=== PATIENT | female | born 1970 | race American Indian/Alaskan Native ===

== ENCOUNTER 2016-08-26 18:27 | Emergency (ER) | payer MEDICAID ==
[2016-08-26] MEDS ORDERED: Acetaminophen 650mg/20.3ml solution UD ONE (21:18)
[2016-08-26] MEDS ORDERED: Acetaminophen 650mg/20.3ml solution UD PO STA (21:24)
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
[2016-08-26 23:44] VITALS: BP 114/76; PULSE 61; RESP 16; TEMP 97.8; O2SAT 99
== END 2016-08-27 00:04 | disposition home or self-care (01) ==
LOC: C.ER 18:27
DX: S16.1XXA Strain of muscle, fascia and tendon at neck level, initial encounter (principal); S09.90XA Unspecified injury of head, initial encounter; Y04.0XXA Assault by unarmed brawl or fight, initial encounter

== ENCOUNTER 2016-12-10 21:42 | Emergency (ER) | payer MEDICAID ==
[2016-12-10 21:55] VITALS: RESP 16
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
[2016-12-11 01:58] LABS: BASO # 0.1 K/uL (0.0-0.2); BASO % 0.7 % (0.0-2.0); EOS # 0.1 K/uL (0.0-0.7); EOS % 1.5 % (0.0-4.0); HEMATOCRIT 39.6 % (34.0-47.0); LYMPH # 1.9 K/uL (1.0-4.3); LYMPH % 19.5 % (20.0-40.0); MEAN CELL VOLUME 91.4 fL (81.0-99.0); MEAN CORPUSCULAR HEMOGLOBIN 28.8 pg (27.0-31.0); MEAN CORPUSCULAR HGB CONC 31.4 g/dL (33.0-37.0); MEAN PLATELET VOLUME 8.5 fL (7.2-11.7); MONO # 1.1 K/uL (0.0-0.8); MONO % 11.8 % (0.0-10.0); RED CELL DISTRIBUTION WIDTH 15.5 % (11.5-14.5); WHITE BLOOD COUNT 9.7 K/uL (4.8-10.8)
[2016-12-11 02:05] LABS: CHLORIDE 101 mmol/L (98-107); POTASSIUM 4.2 mmol/L (3.6-5.2); SODIUM 139 mmol/L (132-148)
[2016-12-11 02:08] LABS: ALB/GLOB RATIO 1.1 (1.0-2.1); ALKALINE PHOSPHATASE 85 U/L (38-126); ALT/SGPT 45 U/L (9-52); AST/SGOT 36 U/L (14-36); BILIRUBIN,TOTAL 0.9 mg/dL (0.2-1.3); BLOOD UREA NITROGEN 13 mg/dL (7-17); CARBON DIOXIDE 27 mmol/L (22-30); GFR AFRICAN-AMERICAN > 60; GLUCOSE,RANDOM 88 mg/dL (65-105); TOTAL PROTEIN 7.5 g/dL (6.3-8.3)
[2016-12-11 02:09] LABS: CALCIUM 9.8 mg/dl (8.6-10.4)
[2016-12-11] MEDS ORDERED: Amoxicillin 250 mg/5 ml Susp (100 ml) ONE (02:11)
[2016-12-11] MEDS ORDERED: Sodium Chloride 0.9% 500 ML IV ONE (02:40)
[2016-12-11] MEDS ORDERED: Sodium Chloride 0.9% 1,000 ML IV ONE (02:41)
[2016-12-11 04:39] LABS: RBC URINE 58 /hpf (0-3); URINE BACTERIA RARE (<OCC); URINE BILIRUBIN NEGATIVE (NEGATIVE); URINE BLOOD 2+ (NEGATIVE); URINE COLOR Yellow (YELLOW); URINE GLUCOSE (UA) NORMAL (Normal); URINE KETONE NEGATIVE (NEGATIVE); URINE LEUKOCYTE ESTERASE 2+ Leu/uL (Negative); URINE PROTEIN 1+ mg/dL (NEGATIVE); URINE UROBILINOGEN NORMAL mg/dL (0.2-1.0); WBC URINE 69 /hpf (0-5)
--- NOTE | 2016-12-11 06:27 | US ---
EXAM: US Pelvis, Transvaginal EXAM DATE/TIME: 12/11/2016 1:29 AM CLINICAL HISTORY: 46 years old, female; Pain; Pelvic pain; Additional info: Lower abd tenderness/ pain TECHNIQUE: Real-time transvaginal pelvic ultrasound (complete) with image documentation. Transvaginal imaging was used for better evaluation of the endometrium and adnexa. COMPARISON: CT - ABD PELVIS IV CONTRAST ONLY 09/12/2015 10:57:37 AM FINDINGS: Uterus/cervix: Uterus measures 11.6 x 6.9 x 8.4 cm. Heterogeneous myometrium. Three calcified myomas: 3.5 x 3.4 x 3.6 cm, 3.6 3.2 x 3.1 cm, 3.8 x 3.5 x 3.4 cm. Additional non-calcified myomas in the posterior body measures 3.1 x 2.2 x 2.7 cm, in lower uterine segment measures 2.9 x 2.5 x 2.7 cm. Heterogeneous endometrium measures 1.7 cm. Right ovary: Not visualized. Left ovary: Not visualized. Free fluid: No free fluid. Bladder: Empty bladder which cannot be evaluated with this probe. IMPRESSION: 1. Enlarged and myomatous uterus. 2. Thickened and heterogeneous endometrium.
[2016-12-11 07:15] VITALS: BP 124/87; PULSE 65; TEMP 98.7; O2SAT 100
--- NOTE | 2016-12-11 11:51 | CARD ---
APPROVED REPORT EKG Measurement Heart [id number] <Conclusion> Normal sinus rhythm Normal ECG
== END 2016-12-11 07:23 | disposition home or self-care (01) ==
LOC: C.ER 21:42
DX: N73.9 Female pelvic inflammatory disease, unspecified (principal); N39.0 Urinary tract infection, site not specified; D25.9 Leiomyoma of uterus, unspecified; S60.372A Other superficial bite of left thumb, initial encounter; Y04.1XXA Assault by human bite, initial encounter; Y92.9 Unspecified place or not applicable
CPT/HCPCS: 76830; 80053; 81001; 84702; 84703; 85025; 87070; 87086; 87491; 87591; 90471; 90715; 93005; 96365; 99283; J0696; J7040

== ENCOUNTER 2017-04-13 16:37 | Emergency (ER) | payer SELFPAY ==
[2017-04-13 17:41] LABS: RBC URINE 1 /hpf (0-3); URINE BILIRUBIN NEGATIVE (NEGATIVE); URINE BLOOD NEGATIVE (NEGATIVE); URINE COLOR Yellow (YELLOW); URINE GLUCOSE (UA) NORMAL (Normal); URINE KETONE NEGATIVE (NEGATIVE); URINE LEUKOCYTE ESTERASE NEG Leu/uL (Negative); URINE PROTEIN 1+ mg/dL (NEGATIVE); URINE UROBILINOGEN NORMAL mg/dL (0.2-1.0); WBC URINE 1 /hpf (0-5)
[2017-04-13 18:06] LABS: BASO % 0.5 % (0.0-2.0); EOS # 0.2 K/uL (0.0-0.7); EOS % 3.4 % (0.0-4.0); HEMATOCRIT 42.6 % (34.0-47.0); MEAN CELL VOLUME 93.7 fL (81.0-99.0); MEAN CORPUSCULAR HGB CONC 34.1 g/dL (33.0-37.0); MEAN PLATELET VOLUME 8.3 fL (7.2-11.7); MONO # 0.6 K/uL (0.0-0.8); MONO % 10.4 % (0.0-10.0); NRBC % 0.1 % (0.0-2.0); RED CELL DISTRIBUTION WIDTH 13.7 % (11.5-14.5); WHITE BLOOD COUNT 5.3 K/uL (4.8-10.8)
[2017-04-13 18:14] LABS: BLOOD UREA NITROGEN 18 mg/dL (7-17); CALCIUM 9.6 mg/dl (8.6-10.4); CARBON DIOXIDE 30 mmol/L (22-30); CHLORIDE 98 mmol/L (98-107); GFR AFRICAN-AMERICAN > 60; GLUCOSE,RANDOM 84 mg/dL (65-105); POTASSIUM 4.7 mmol/L (3.6-5.2); SODIUM 133 mmol/L (132-148); TOTAL PROTEIN 7.8 g/dL (6.3-8.3)
[2017-04-13 18:15] LABS: ALB/GLOB RATIO 1.1 (1.0-2.1); ALKALINE PHOSPHATASE 71 U/L (38-126); ALT/SGPT 33 U/L (9-52); AST/SGOT 37 U/L (14-36); BILIRUBIN,TOTAL 0.9 mg/dL (0.2-1.3)
--- NOTE | 2017-04-13 20:53 | US ---
EXAM: US Pelvis, Transvaginal EXAM DATE/TIME: Exam ordered 04/13/2017 5:49 PM CLINICAL HISTORY: 46 years old, female; Signs and symptoms; Other: H/o fibroids; Additional info: Pelvic pain, h/o fibroids. TECHNIQUE: Real-time transvaginal pelvic ultrasound (complete) with image documentation. Transvaginal imaging was used for better evaluation of the endometrium and adnexa. COMPARISON: PELVIS/TRANSVAG US 2015-03-31 19:46 FINDINGS: Uterus/cervix: The uterus measures at least 12.2 x 7.4 x 8.6 cm. There is an anterior corpus intramural fibroid measuring 2.5 x 1.9 x 2.4 cm. There is a calcified posterior corpus fibroid measuring approximately 3.2 x 3.1 x 3.6 cm. (Previous 3.7 x 3.6 x 4 cm). There is a calcified left lateral corpus fibroid intramural in location measuring 4.2 x 3.6 x 3.5 cm. (Previous 4 x 3.8 x 3.5) There is a calcified intramural posterior corpus fibroid measuring 4.3 x 3.7 x 4.5 cm. (Previous 3.5 x 3.8 x 4.6) There is a calcified right posterior corpus fibroid intramural in location measuring 3.8 x 3.7 x 3.6 cm. (Previous 4 x 3.8 x 3.5). There is a calcified right lateral posterior corpus fibroid measuring 2 x 2 x 2.1 cm. (Previous 2.7 x 3.2 x 2.8 cm.) The endometrial stripe measures 1.7 mm in thickness. No areas of abnormal vascularity are noted on color Doppler examination. The endometrium is heterogeneous in appearance Right ovary: The right ovary measures 2.4 x 1.8 x 1.9 cm. . Blood flow is seen in the right ovary on color Doppler examination. Left ovary: Not seen a separate structure.. Free fluid: No free fluid. Bladder: Empty bladder which cannot be evaluated with this probe. Vasculature: IMPRESSION: 1. Fibroid uterus. 2. Endometrial stripe is slightly thickened. Differential diagnostic considerations include endometrial hyperplasia, dysplasia or endometrial carcinoma. Followup might be considered at a different point in the patient's menstrual cycle (as 6 weeks).
--- NOTE | 2017-04-13 21:30 | C.PDOC ---
Time Seen by Provider: 04/13/17 17:05 Chief Complaint (Nursing): Abdominal Pain History Per: Patient Onset/Duration Of Symptoms: Days (months) Current Symptoms Are (Timing): Still Present Severity: Moderate Location Of Pain/Discomfort: Suprapubic Quality Of Discomfort: "Pain" Exacerbating Factors: None Alleviating Factors: None Additional History Per: Prior Records Abnormal Vaginal Bleeding: No Last Menstral Period: about 6 months Past Medical History Reviewed: Historical Data, Nursing Documentation, Vital Signs Vital Signs: Last Vital Signs Temp 98.3 F 04/13/17 20:47 Pulse 88 04/13/17 20:47 Resp 17 04/13/17 20:47 BP 121/75 04/13/17 20:47 Pulse Ox 99 04/13/17 20:47 - Medical History PMH: Asthma, Bronchitis, COPD, HTN Surgical History: Hernia Repair Family History: States: Unknown Family Hx - Social History Hx Tobacco Use: Yes Hx Alcohol Use: Yes Hx Substance Use: No - Immunization History Hx Tetanus Toxoid Vaccination: No Hx Influenza Vaccination: No Hx Pneumococcal Vaccination: Yes Review Of Systems Except As Marked, All Systems Reviewed And Found Negative. Constitutional: Negative for: Fever, Weakness Cardiovascular: Negative for: Chest Pain Respiratory: Negative for: Shortness of Breath Gastrointestinal: Negative for: Vomiting, Diarrhea Genitourinary: Positive for: Pelvic Pain. Negative for: Dysuria, Vaginal Discharge, Vaginal Bleeding Musculoskeletal: Negative for: Neck Pain Skin: Negative for: Rash Neurological: Positive for: Headache (for months). Negative for: Weakness, Numbness, Seizures Physical Exam - Physical Exam Appears: Non-toxic, No Acute Distress Skin: Normal Color, Warm, Dry, No Rash Head: Atraumatic, Normacephalic Eye(s): bilateral: PERRL, EOMI Neck: Normal ROM, Supple Cardiovascular: Rhythm Regular Respiratory: Normal Breath Sounds, No Accessory Muscle Use Gastrointestinal/Abdominal: Soft, Tenderness (suprapubic), No Guarding, No Rebound Back: No CVA Tenderness Extremity: Normal ROM Neurological/Psych: Oriented x3, Normal Motor, Normal Sensation ED Course And Treatment - Laboratory Results Result Diagrams: 04/13/17 18:00 04/13/17 18:00 Lab Interpretation: No Acute Changes Urine POC: Negative O2 Sat by Pulse Oximetry: 99 Pulse Ox Interpretation: Normal - CT Scan/US CT head Other Rad Studies (CT/US): Read By Radiologist, Radiology Report Reviewed CT/US Interpretation: No acute findings Pelvic US Other Rad Studies (CT/US): Read By Radiologist, Radiology Report Reviewed CT/US Interpretation: IMPRESSION: 1. Fibroid uterus. . 2. Endometrial stripe is slightly thickened. Differential diagnostic. considerations include endometrial hyperplasia, dysplasia or endometrial. carcinoma. Followup might be considered at a different point in the patient's. menstrual cycle (as 6 weeks). - Physician Consult Information Physician Contacted: Lorena Ross (Metallurgical Technician) Outcome Of Conversation: I discussed with her the pt's presentation and US findings. She states pt can safely be discharge to f/up with routine outpt Metallurgical Technician. Disposition Counseled Patient/Family Regarding: Studies Performed, Diagnosis, Need For Followup, Rx Given - Disposition Referrals: [facility] [Outside] [facility] [Outside] Disposition: HOME/ ROUTINE Disposition Time: 21:32 Condition: STABLE Additional Instructions: Follow up with a Regulatory Affairs Coordinator within 1-2 weeks for further evaluation and treatment, including endometrial biopsy. Return to the ER if you develop vaginal bleeding or discharge, fever, vomiting, worsening of symptoms or if you have any other concerns. Prescriptions: Naproxen [Naprosyn] 1 tab PO BID PRN #20 tab PRN Reason: Pain Instructions: Uterine Fibroids (ED), Post Concussion Syndrome (ED) Print Language: SOUTH KOREAN - Clinical Impression Clinical Impression: Fibroids, Endometrial thickening on ultra sound, Chronic pelvic pain in female , Chronic headache
[2017-04-13 21:47] VITALS: BP 118/72; PULSE 75; RESP 18; TEMP 97.9; O2SAT 96
--- NOTE | 2017-04-13 22:44 | CT ---
PROCEDURE: CT HEAD WITHOUT CONTRAST. HISTORY: Persistent headaches COMPARISON: 08/26/2016 TECHNIQUE: Axial computed tomography images were obtained through the head/brain without intravenous contrast. No acute intracranial abnormalities. No significant findings to account for the clinical presentation. Radiation dose: Total exam DLP = 822.62 mGy-cm. This CT exam was performed using one or more of the following dose reduction techniques: Automated exposure control, adjustment of the mA and/or kV according to patient size, and/or use of iterative reconstruction technique. FINDINGS: HEMORRHAGE: No intracranial hemorrhage. BRAIN: No mass effect or edema. No atrophy or chronic microvascular ischemic changes. VENTRICLES: Unremarkable. No hydrocephalus. CALVARIUM: Unremarkable. PARANASAL SINUSES: Unremarkable as visualized. No significant inflammatory changes. MASTOID AIR CELLS: Unremarkable as visualized. No inflammatory changes. OTHER FINDINGS: None. IMPRESSION: No acute intracranial abnormalities. No significant findings to account for the clinical presentation. No significant interval change compared to the prior examination(s).
== END 2017-04-13 21:53 | disposition home or self-care (01) ==
LOC: C.ER 16:37
DX: D25.9 Leiomyoma of uterus, unspecified (principal); R51 Headache; R10.2 Pelvic and perineal pain; R93.8 Abnormal findings on diagnostic imaging of other specified body structures; I10 Essential (primary) hypertension; Z87.891 Personal history of nicotine dependence
CPT/HCPCS: 70450; 76830; 80053; 81001; 83690; 84703; 85025; 87086; 87491; 87591; 96374; 96375; 99285; J1885

== ENCOUNTER 2017-05-18 16:39 | Emergency (ER) | payer SELFPAY ==
[2017-05-18 17:08] VITALS: O2SAT 98
--- NOTE | 2017-05-18 17:24 | C.PDOC ---
History Of Present Illness 46-year-old female, presents to the emergency department with complaints of "bladder pain" that is associated with urinary frequency. Patient also notes she woke up this morning with subjective fever and chills. Denies nausea/ vomiting, chest pain, SOB, dizziness, headache, or any other associated symptoms. Time Seen by Provider: 05/18/17 17:13 Chief Complaint (Nursing): Abdominal Pain History Per: Patient History/Exam Limitations: no limitations Past Medical History Reviewed: Historical Data, Nursing Documentation, Vital Signs Vital Signs: Last Vital Signs Temp 98.9 F 05/18/17 19:48 Pulse 90 05/18/17 19:48 Resp 18 05/18/17 19:48 BP 110/72 05/18/17 19:48 Pulse Ox 98 05/19/17 11:18 - Medical History PMH: Asthma, Bronchitis, COPD, Emphysema, HTN Denies: Chronic Kidney Disease, Sexually Transmitted Disease Surgical History: Hernia Repair Family History: States: No Known Family Hx - Social History Hx Tobacco Use: Yes Hx Alcohol Use: Yes Hx Substance Use: No - Immunization History Hx Tetanus Toxoid Vaccination: Yes Hx Influenza Vaccination: No Hx Pneumococcal Vaccination: Yes Review Of Systems Except As Marked, All Systems Reviewed And Found Negative. Constitutional: Positive for: Fever, Chills, Malaise Genitourinary: Positive for: Frequency, Pelvic Pain Physical Exam - Physical Exam Appears: Non-toxic, No Acute Distress Skin: Warm, Dry, No Rash Head: Atraumatic, Normacephalic Eye(s): bilateral: Normal Inspection, PERRL, EOMI Nose: Normal Oral Mucosa: Moist Lips: Normal Appearing Neck: Normal ROM, Supple Chest: Symmetrical Cardiovascular: Rhythm Regular, No Friction Rub, No Murmur Respiratory: Normal Breath Sounds, No Accessory Muscle Use Gastrointestinal/Abdominal: Bowel Sounds (active), Soft, Tenderness (Mild, suprapubic), No Guarding, No Rebound Back: Normal Inspection, No CVA Tenderness Extremity: Normal ROM, No Swelling Neurological/Psych: Oriented x3, Normal Cranial Nerves, Normal Motor Gait: Steady ED Course And Treatment - Laboratory Results Result Diagrams: 05/18/17 17:48 05/18/17 17:48 O2 Sat by Pulse Oximetry: 98 (on RA) Pulse Ox Interpretation: Normal Disposition - Disposition Referrals: Hamilton Tello MD [Medical Doctor] - Disposition: HOME/ ROUTINE Disposition Time: 19:48 Condition: GOOD Additional Instructions: Follow up with the medical doctor within 1-2 days. Return if worsened. Prescriptions: Ciprofloxacin [Cipro] 1 tab PO BID #14 tab Phenazopyridine HCl [Pyridium] 200 mg PO TID #10 tablet Instructions: Urinary Tract Infection in Women (ED) Forms: [employer] (Indonesian) - Clinical Impression Clinical Impression: UTI (urinary tract infection) - Scribe Statement The provider has reviewed the documentation as recorded by the Scribe (Dipti Marie) All medical record entries made by the Scribe were at my direction and personally dictated by me. I have reviewed the chart and agree that the record accurately reflects my personal performance of the history, physical exam, medical decision making, and the department course for this patient. I have also personally directed, reviewed, and agree with the discharge instructions and disposition.
[2017-05-18 17:51] LABS: BASO # 0.1 K/uL (0.0-0.2); BASO % 0.8 % (0.0-2.0); EOS # 0.2 K/uL (0.0-0.7); EOS % 1.9 % (0.0-4.0); HEMOGLOBIN 14.3 g/dL (11.0-16.0); LYMPH % 25.1 % (20.0-40.0); MEAN CELL VOLUME 94.6 fL (81.0-99.0); MEAN CORPUSCULAR HGB CONC 33.8 g/dL (33.0-37.0); MEAN PLATELET VOLUME 8.5 fL (7.2-11.7); MONO % 13.3 % (0.0-10.0); NEUT # 4.6 K/uL (1.8-7.0); NEUT % 58.9 % (50.0-75.0); NRBC % 0.1 % (0.0-2.0); RBC 4.48 Mil/uL (3.80-5.20); RED CELL DISTRIBUTION WIDTH 13.4 % (11.5-14.5); WHITE BLOOD COUNT 7.8 K/uL (4.8-10.8)
[2017-05-18 17:57] LABS: HCG,QUALITATIVE URINE NEGATIVE (NEGATIVE)
[2017-05-18 18:02] LABS: SQUAMOUS EPITHIAL 5 /hpf (0-5); URINE BACTERIA MANY (<OCC); URINE BILIRUBIN NEGATIVE (NEGATIVE); URINE BLOOD 1+ (NEGATIVE); URINE CLARITY Hazy (Clear); URINE COLOR Yellow (YELLOW); URINE GLUCOSE (UA) NORMAL (Normal); URINE LEUKOCYTE ESTERASE 3+ Leu/uL (Negative); URINE NITRATE POSITIVE (NEGATIVE); URINE PROTEIN 1+ mg/dL (NEGATIVE); URINE UROBILINOGEN NORMAL mg/dL (0.2-1.0)
[2017-05-18 18:12] LABS: ALBUMIN 4.2 g/dL (3.5-5.0); ALT/SGPT 28 U/L (9-52); AST/SGOT 24 U/L (14-36); BLOOD UREA NITROGEN 11 mg/dL (7-17); CALCIUM 9.5 mg/dl (8.6-10.4); GFR AFRICAN-AMERICAN > 60; GFR NON-AFRICAN AMERICAN > 60
[2017-05-18] MEDS ORDERED: cefTRIAXone IV 1 gm in Dextros 50 ML IV ONE (18:26)
[2017-05-18] MEDS ORDERED: Sodium Chloride 0.9% 1,000 ML IV ONE (18:27)
[2017-05-18] MEDS ORDERED: Sodium Chloride 0.9% 1,000 ML ONE (18:44)
[2017-05-18 19:49] VITALS: BP 110/72; PULSE 90; RESP 18; TEMP 98.9
== END 2017-05-18 19:48 | disposition home or self-care (01) ==
LOC: C.ER 16:39
DX: N39.0 Urinary tract infection, site not specified (principal); I10 Essential (primary) hypertension; J44.9 Chronic obstructive pulmonary disease, unspecified; Z72.0 Tobacco use
CPT/HCPCS: 80053; 81001; 82948; 84703; 85025; 87086; 87804; 96365; 99285; J0696; J7040